=== PATIENT | male | born 1980 | race Caucasian/White ===

== ENCOUNTER 2021-09-12 14:55 | Outpatient (CLI) | payer OTHER, SELFPAY ==
--- NOTE | 2021-09-12 15:04 | ECHOD_ITS ---
Reason For Study: Syncope Procedure This was a 2D Doppler, Color Flow transthoracic echocardiogram. Exam performed in department. Left Ventricle Normal LV size. Left ventricular systolic function is lower limits of normal. The estimated ejection fraction is 50 %. No regional wall motion abnormalities noted. Right Ventricle Normal RV size. Normal systolic function. Atria Normal left atrium. Normal right atrium. Mitral Valve Normal mitral valve. Tricuspid Valve Normal tricuspid valve. Aortic Valve Normal aortic valve. Pulmonic Valve Normal pulmonic valve. Great Vessels Normal aortic root. Pericardium/Pleural No pericardial effusion. MMode/2D Measurements & Calculations LVIDd: 4.6 cm IVSd: 1.1 cm Ao root diam: 2.6 cm LVIDs: 3.3 cm LVPWd: 1.1 cm RVDd: 2.5 cm FS: 27.6 % LAV(MOD-bp): 24.8 ml LVAd ap4: 26.0 cm2 SV(MOD-sp4): 40.0 ml LAV(MOD-bp) Indexed: 12.5 ml/m2 LVLd ap4: 7.9 cm LAV(MOD-sp2): 21.7 ml EDV(MOD-sp4): 71.7 ml LAV(MOD-sp4): 22.9 ml EDV(sp4-el): 72.5 ml LVAs ap4: 15.5 cm2 LVLs ap4: 7.0 cm ESV(MOD-sp4): 31.7 ml ESV(sp4-el): 29.4 ml EF(MOD-sp4): 55.8 % EF(sp4-el): 59.4 % SV(sp4-el): 43.0 ml LA A4 area: 10.8 cm2 LA dimension(2D): 2.7 cm RA A4 area: 10.9 cm2 Doppler Measurements & Calculations MV E max calvin: 75.1 cm/sec Lat Peak E' Calvin: 19.8 cm/sec Med Peak E' Calvin: 12.0 cm/sec MV A max calvin: 66.8 cm/sec E/E' lat: 3.8 E/E' med: 6.3 MV E/A: 1.1 Ao V2 max: 112.7 cm/sec LV V1 max: 105.3 cm/sec PA V2 max: 71.8 cm/sec Ao max P.1 mmHg LV V1 max P.4 mmHg Ao V2 mean: 80.1 cm/sec Ao mean P.8 mmHg Ao V2 VTI: 20.0 cm ECHO/Echo Complete Interpretation Summary Normal LV size. Left ventricular systolic function is lower limits of normal. The estimated ejection fraction is 50 %. Structurally normal valves. Ordering Physician: Ameya Shearer Referring Physician: Ameya Shearer Performed By: Juli Juarez, MARCEL, RVT
== END 2021-09-12 23:59 | disposition home or self-care (01) ==
PROVIDERS: PCP Family Medicine; Referring Provider Family Medicine; Visit Provider Family Medicine
DX: R55 Syncope and collapse (principal)
CPT/HCPCS: 93306

== ENCOUNTER → 2023-01-21 | Outpatient (CLI) | payer OTHER, SELFPAY ==
--- NOTE | 2023-01-21 12:11 | US_ITS ---
STUDY: RENAL ULTRASOUND - COMPLETE REASON FOR EXAM: Male, 42 years old. MICROSCOPIC HEMATURIA TECHNIQUE: Ultrasound evaluation of the kidneys was performed with real-time and static sloan-scale imaging. COMPARISON: None. FINDINGS: RIGHT KIDNEY: Normal location of the right kidney, which is normal in size. The right kidney measures 10.6 cm x 5.1 cm x 6.5 cm. There is a normal cortex of the right kidney. The renal cortex measures 2.0 cm. There is no right renal mass or cyst. There are no right renal calculi. There is no right hydronephrosis. DISTAL RIGHT URETER: There is non-visualization of the distal right ureter. There is no demonstrated right ureterovesical junction calculus. There is a visualized right ureteral jet. LEFT KIDNEY: Normal location of the left kidney, which is normal in size. The left kidney measures 10.6 cm x 4.7 cm x 5.3 cm. There is a normal cortex of the left kidney. The renal cortex measures 1.8 cm. There is no left renal mass or cyst. There are no left renal calculi. There is no left hydronephrosis. DISTAL LEFT URETER: There is non-visualization of the distal left ureter. There is no demonstrated left ureterovesical junction calculus. There is a visualized left ureteral jet. BLADDER: The distended urinary bladder has a volume of 423 ml. The empty urinary bladder has a volume of 24 ml. There is a normal wall thickness of the distended urinary bladder. There is no demonstrated mass within the urinary bladder. There are no demonstrated bladder calculi. US/Kidney and Bladder IMPRESSION: Normal ultrasound of the kidneys and urinary bladder. Electronically Signed: Jeremias Gillette MD at 15:07 EDT ,
== END | disposition home or self-care (01) ==
LOC: US 12:09
PROVIDERS: PCP Family Medicine; Referring Provider Urology; Visit Provider Urology
DX: R31.21 Asymptomatic microscopic hematuria (principal)
CPT/HCPCS: 76770